=== PATIENT | female | born 1980 | race Caucasian/White ===

== ENCOUNTER 2020-06-23 12:07 | Observation (INO) | payer OTHER ==
[2020-06-20 12:29] LABS: BASOPHILS % 0.8 % (0.0-1.0); EOSINOPHILS # (AUTO) 0.2 (0.0-0.4); EOSINOPHILS % 3.8 % (0.0-6.0); HEMATOCRIT 38.3 % (34.2-44.1); HEMOGLOBIN 11.4 g/dL (12.0-16.0); LYMPHOCYTES # (AUTO) 1.7 (1.0-3.2); LYMPHOCYTES % 32.4 % (18.0-39.1); MEAN CORPUSCULAR HEMOGLOBIN 22.9 pg (28-32); MEAN CORPUSCULAR HGB CONC 29.8 g/dL (31-35); MEAN CORPUSCULAR VOLUME 76.9 fL (81-99); MONOCYTES # (AUTO) 0.5 (0.2-0.8); MONOCYTES % 9.1 % (4.4-11.3); NEUTROPHILS # (AUTO) 2.8 (2.1-6.9); NEUTROPHILS % 53.7 % (38.7-80.0); PLATELET COUNT 232 x10e3/uL (140-360); RED BLOOD COUNT 4.98 x10e6/uL (3.6-5.1); RED CELL DISTRIBUTION WIDTH 20.6 % (11.7-14.4)
[2020-06-20 12:29] LABS: CLARITY,URINE CLEAR (CLEAR); COLOR,URINE YELLOW (YELLOW); LEUKOCYTE ESTERASE ,URINE TRACE (NEGATIVE)
[2020-06-20 12:30] LABS: BILIRUBIN,URINE NEGATIVE (NEGATIVE); KETONES,URINE NEGATIVE (NEGATIVE); NITRITE,URINE NEGATIVE (NEGATIVE); PROTEIN,URINE DIPSTICK NEGATIVE (NEGATIVE); URINE UROBILINOGEN 0.2 mg/dL (0.2 - 1)
[2020-06-20 12:54] LABS: RBC MORPHOLOGY COMMENT NORMAL
[2020-06-20 12:55] LABS: ELLIPTOCYTE, RBC SLIGHT; HYPOCHROMASIA SLIGHT; OVALOCYTES FEW; PLATELET ESTIMATE ADEQUATE; PLATELET MORPHOLOGY COMMENT FEW LARGE
[~2020-06-23] VITALS: Ht 180.3 cm; Wt 136.1 kg
[2020-06-23] MEDS ORDERED: VITAMIN B-121000 MCG PO (12:34)
[2020-06-23] MEDS ORDERED: MULTI-VITAMIN1 EACH PO (12:34)
[2020-06-23] MEDS ORDERED: CEFAZOLIN SOD 1 GM/NS 50ML 150 ML IV ONE (12:46)
[2020-06-23] MEDS ORDERED: ATROPINE SULFATE 1 MG/ML VIAL ONE (13:13)
[2020-06-23] MEDS ORDERED: PROPOFOL IV EMULSION 10 MG/ML 20 ML VIAL ONE (13:13)
[2020-06-23] MEDS ORDERED: ROCURONIUM BROMIDE 10 MG/ML 5ML VIAL IV ONE (13:13)
[2020-06-23] MEDS ORDERED: SUCCINYLCHOLINE CHLORIDE 20 MG/ML 10ML VIAL ONE (13:13)
[2020-06-23] MEDS ORDERED: ONDANSETRON HCL INJ 2MG/ML 2ML 2 MG/ML VIAL ONE (13:13)
[2020-06-23] MEDS ORDERED: LIDOCAINE HCL 2% LOCAL INJ 5 ML SDV VIAL INJ ONE (13:13)
[2020-06-23] MEDS ORDERED: KETOROLAC TROMETHAMINE 30 MG/ML VIAL ONE (13:13)
[2020-06-23] MEDS ORDERED: SEVOFLURANE INHAL SOLN 250 ML PEN BTL ONE (13:13)
[2020-06-23] MEDS ORDERED: DEXAMETHASONE SOD PHOS INJ 4 MG/ML VIAL ONE (13:13)
[2020-06-23] MEDS ORDERED: NEOSTIGMINE 1 MG/ML 10ML VIAL ONE (13:13)
[2020-06-23] MEDS ORDERED: BUPIVACAINE 0.25% 30ML SDV INJ ONE (15:22)
[2020-06-23] MEDS ORDERED: LIDOCAINE 1% W/EPINEPHRINE 20 ML VIAL ONE (15:22)
[2020-06-23] MEDS ORDERED: HYDROMORPHONE 1MG/1ML INJ ONE (18:18)
[2020-06-23] MEDS ORDERED: ACETAMINOPHEN 325 MG TAB PO PRN (18:30)
[2020-06-23] MEDS ORDERED: BISACODYL 10 MG SUPP PR PRN (18:30)
[2020-06-23] MEDS ORDERED: DOCUSATE SODIUM 100 MG CAP PO PRN (18:30)
[2020-06-23] MEDS ORDERED: DIPHENHYDRAMINE HCL 25 MG CAP PO PRN (18:30)
[2020-06-23] MEDS: LACTATED RINGER'S 1,000 ML IV SCH (18:30)
--- NOTE | 2020-06-23 19:45 | Operative Report ---
DATE OF PROCEDURE: 06/23/2020 SURGEON: Chad Amaya MD PREOPERATIVE DIAGNOSES: Abnormal uterine bleeding, menorrhagia, and anemia. POSTOPERATIVE DIAGNOSES: Abnormal uterine bleeding, menorrhagia, and anemia. TITLE OF THE PROCEDURE: Total laparoscopic hysterectomy and bilateral salpingectomy. TELECOMMUNICATIONS EQUIPMENT INSTALLER: Chava Kirk MD ANESTHESIA: General with Dr. Chang. INDICATION FOR OPERATION: The patient is a 40-year-old 5, para 4-0-1-4 with last menstrual period June 02, 2020, who presented with a one year history of menorrhagia and anemia requiring IV iron infusions. Her hemoglobin lowest by me was 9.5, apparently lower and she was seeing her other physicians. Endometrial biopsy was benign. She is therefore here for a total laparoscopic hysterectomy and bilateral salpingectomy secondary to menorrhagia and anemia. She declines endometrial ablation or other therapy. She is status post Essure procedure in September 2014 for contraception. FINDINGS OF SURGERY: There was a four week size uterus. Normal tubes and ovaries were noted. DESCRIPTION OF PROCEDURE: The patient was taken to the operating room, placed on the table in supine position. General anesthesia was administered. The patient was placed in the lithotomy position. The perineum was prepared and draped in the usual sterile manner. Pelvic exam revealed a four week size anteverted uterus and no adnexal masses. Uterus was sounded to 9 cm. A Sanabria catheter had been placed in the bladder for constant drainage. A weighted speculum was placed in a posterior vaginal wall and with the aid of right angle retractor the anterior lip of the cervix was grasped with single-tooth tenaculum. At this point, the uterus was sounded to 9 cm. Then, a large VCare cup was placed. The balloon inflated and the cup was brought to the cervix. At this point, the squaring shear operator changed gloves and we proceeded with the laparoscopy. The legs were put down and then we proceeded through a small incision just inferior to the umbilicus in the midline. Using a 5 mm trocar under direct visualization, the laparoscope was placed into the peritoneal cavity. Then, trocars were also placed in the left lower quadrant and the right lower quadrant under direct visualization by laparoscopy. The probe was placed. Contents of the abdomen and pelvis were visualized with the finding of normal uterus, tubes and ovaries except for the uterus was four weeks size. Attention was then turned to the tubes. They were grasped and from the ovary. The mesosalpinx was then clamped, coagulated, and cut using the LigaSure instrument. This was done all the way to the uterus the mesosalpinx on each side. Then, the tubo-ovarian ligament on each side was clamped, cauterized, and cut and then the round ligament on each side was clamped, cut and divided and then opening from round ligament to round ligament the anterior peritoneum was opened. The bladder was brought down and then the uterine vessels were skeletonized and clamped, coagulated, and cut using the LigaSure instrument. Following this, the uterosacral ligaments on each side were clamped, coagulated, and cut and then we proceeded to use the L-hook cautery on the LigaSure instrument to cauterize around the cervix until visualizing the VCare cup, and then all the attachments that were around the VCare cup were cut off until the uterus was isolated. There was good hemostasis noted at the uterine vessels and at this point, with the uterus detached it was brought out through the vagina and sent to pathology for definitive diagnosis. Then, reinspected for any bleeders, irrigated and suctioned and then we proceeded to close the vaginal cuff with laparoscopic sutures [id number] stitches, 4 stitches were placed to close the cuff and once the cuff was closed, there was good hemostasis noted. Irrigated and suctioned finding no further evidence of bleeding. Dr. Kirk proceeded with cystoscopy. First, the bladder was filled while watching through the laparoscope and there was no evidence of leakage from the bladder and then we used the cystoscope to look in the bladder. The ureteral jets were identified bilaterally and there was no evidence of any bladder injury. At this point, the procedure was deemed terminated. All the instruments were removed. All the gas was removed from the abdomen. The skin incisions were closed with inverted stitches of 4-0 Monocryl suture and thus completing the procedure. There were no complications noted. Estimated blood loss was 100 mL. The patient tolerated the procedure well and was transferred from the operating room to the recovery room in stable condition. Dr. Kirk assisted with retraction, hemostasis, visualization, suturing, irrigation and suctioning. MD LAINEY Espinal/MODL /[id number]
[2020-06-23 20:00] VITALS: BP 105/56
[2020-06-23 20:30] VITALS: BP 105/56
--- NOTE | 2020-06-23 21:04 | NUR ---
SPOKE TO SHERYL SPARKS AT THIS TIME. NEW ORDER RECEIVED FOR ЕЛЕНА FOOTE. Addendum: 06/24/20 at 0017 by Sumit Brown RN CEPACOErna CHRISTIANSEN
[2020-06-23] MEDS ORDERED: CEPACOL SORE THROAT LOZENGES PO PRN (21:15)
[2020-06-23] MEDS ORDERED: CEFAZOLIN SOD 1 GM VIAL IV SCH (22:00)
[2020-06-23] MEDS: CEFAZOLIN SOD 2 GM/D5W 50ML 50 ML IV SCH (22:05)
[2020-06-24] VITALS (8 sets, daily range): BP systolic 110–129; BP diastolic 54–67
[2020-06-24] MEDS: LACTATED RINGER'S 1,000 ML IV SCH ×3 (02:40→14:30)
[2020-06-24] MEDS: CEFAZOLIN SOD 2 GM/D5W 50ML 50 ML IV SCH ×2 (06:09→14:41)
--- NOTE | 2020-06-24 06:36 | NUR ---
CRUZ CATHETER REMOVED BY NUNU LIMON PER ORDER.
[2020-06-24 06:42] LABS: BASOPHILS % 0.1 % (0.0-1.0); EOSINOPHILS % 0.1 % (0.0-6.0); HEMATOCRIT 35.2 % (34.2-44.1); HEMOGLOBIN 10.7 g/dL (12.0-16.0); LYMPHOCYTES # (AUTO) 1.1 (1.0-3.2); LYMPHOCYTES % 14.1 % (18.0-39.1); MEAN CORPUSCULAR HEMOGLOBIN 23.7 pg (28-32); MEAN CORPUSCULAR HGB CONC 30.4 g/dL (31-35); MEAN CORPUSCULAR VOLUME 77.9 fL (81-99); MONOCYTES # (AUTO) 0.6 (0.2-0.8); MONOCYTES % 7.6 % (4.4-11.3); NEUTROPHILS # (AUTO) 5.9 (2.1-6.9); NEUTROPHILS % 77.8 % (38.7-80.0); PLATELET COUNT 187 x10e3/uL (140-360); RED BLOOD COUNT 4.52 x10e6/uL (3.6-5.1); RED CELL DISTRIBUTION WIDTH 20.3 % (11.7-14.4)
[2020-06-24] MEDS: ONDANSETRON HCL INJ 2MG/ML 2ML 2 MG/ML VIAL IV PRN ×2 (08:13→18:26)
[2020-06-24] MEDS: MORPHINE SULFATE INJ 4 MG/ML INJ 1ML IV PRN ×2 (08:13→18:26)
[2020-06-24] MEDS: KETOROLAC TROMETHAMINE 30 MG/ML VIAL IV PRN ×2 (10:42→18:35)
[2020-06-24] MEDS ORDERED: IBUPROFEN 600 MG TAB PO PRN (19:15)
[2020-06-24] MEDS ORDERED: ACETAMINOPHEN/CODEINE 300MG - 30MG TAB PO PRN ×2 (19:15→19:30)
[2020-06-24] MEDS: SIMETHICONE 80 MG CHEW PO PRN (21:33)
[2020-06-25] VITALS: BP 105/58
[2020-06-25 04:35] VITALS: BP 116/70
[2020-06-25 08:00] VITALS: BP 116/70
[2020-06-25 08:57] VITALS: BP 114/68
[2020-06-25] MEDS ORDERED: MOTRIN200 MG PO (11:53)
[2020-06-25 12:34] VITALS: BP 129/74
[2020-06-25] MEDS: SIMETHICONE 80 MG CHEW PO PRN (12:34)
--- NOTE | 2020-06-25 12:40 | NUR ---
Patient discharged home verbalized understanding of discharge instructions. Patient refused to assistance be wheeled chair, to front of hospital, nursing staff followed patient.
== END 2020-06-25 12:34 | disposition home or self-care (01) ==
LOC: OR 12:07 → PACU V 16:50 → MED/SURG 19:56
PROVIDERS: ADMIT Obstetrics & Gynecology; ATTEND Obstetrics & Gynecology
DX: N93.9 Abnormal uterine and vaginal bleeding, unspecified (principal); D64.9 Anemia, unspecified; Z11.59 Encounter for screening for other viral diseases; N92.0 Excessive and frequent menstruation with regular cycle; N83.8 Other noninflammatory disorders of ovary, fallopian tube and broad ligament
CPT/HCPCS: 36415 ×2; 58150; 81003; 84702; 85025 ×2; 86850; 86900; 88307; G0378 ×3; J0330; J0461; J0690 ×3; J1100; J1170; J1885 ×2; J2001; J2270; J2405 ×2; J2704; J2710; J7121; U0002

== ENCOUNTER 2022-09-18 19:54 | Emergency (ER) | payer OTHER ==
[~2022-09-18] VITALS: Ht 180.3 cm; Wt 131.5 kg
[~2022-09-18 19:54] MED LIST: MOTRIN200 MG PO; MULTI-VITAMIN1 EACH PO; VITAMIN B-121000 MCG PO
[2022-09-18] MEDS ORDERED: TETANUS/DIPHTHERIA TOX ADULT 0.5 ML SYR IM ONE (20:45)
[2022-09-18] MEDS ORDERED: TETANUS/DIPHTHERIA TOX ADULT 0.5 ML SYR ONE (21:07)
[2022-09-18] MEDS ORDERED: AUGMENTIN 500-1 EACH PO (22:01)
== END 2022-09-18 22:25 | disposition home or self-care (01) ==
LOC: FSED 20:10
DX: S91.332A Puncture wound without foreign body, left foot, initial encounter (principal); W25.XXXA Contact with sharp glass, initial encounter; Y93.01 Activity, walking, marching and hiking; Y92.89 Other specified places as the place of occurrence of the external cause; D50.9 Iron deficiency anemia, unspecified
CPT/HCPCS: 90714; 99283